=== PATIENT | female | born 1955 | race Caucasian/White ===

== ENCOUNTER → 2016-12-16 | Outpatient (CLI) | payer BC | LOC: MAMMO 10:46 | DX: Z12.31 Encounter for screening mammogram for malignant neoplasm of breast (principal) | CPT/HCPCS: G0202 ==

== ENCOUNTER → 2017-12-15 | Outpatient (CLI) | payer BC | LOC: MAMMO 14:52 | DX: Z12.31 Encounter for screening mammogram for malignant neoplasm of breast (principal) ==